=== PATIENT | female | born 2000 | race Caucasian/White ===

== ENCOUNTER 2021-06-23 00:57 | Observation (INO) | payer MEDICAID ==
[2021-06-23] MEDS ORDERED: IV RINGERS,LACTATED 1000ML 1,000 ML IV PRN (01:15)
[2021-06-23 01:44] LABS: BACTERIA,URINE 0 /HPF (0-FEW); RBC,URINE 0 /HPF (0-2)
[2021-06-23 01:45] LABS: AMORPHOUS SEDIMENT,UR PRESENT /HPF
[2021-06-23 02:24] LABS: AMNIO PT NEGATIVE
== END 2021-06-23 02:45 | disposition home or self-care (01) ==
LOC: 3 SO LND 00:57
PROVIDERS: ADMIT Obstetrics & Gynecology; ATTEND Obstetrics & Gynecology
DX: O42.913 Preterm premature rupture of membranes, unspecified as to length of time between rupture and onset of labor, third trimester (principal); Z3A.35 35 weeks gestation of pregnancy; Z79.899 Other long term (current) drug therapy
CPT/HCPCS: 36415; 59025; 81001; 84112; 87086; G0378; G0379

== ENCOUNTER 2021-07-24 20:24 | Observation (INO) | payer MEDICAID ==
[2021-07-24] MEDS ORDERED: hydrOXYzine 25 MG TABLET PO PRN (22:30)
[2021-07-24] MEDS ORDERED: IV RINGERS,LACTATED 1000ML 1,000 ML IV SCH (23:00)
[2021-07-24 23:18] LABS: BACTERIA,URINE FEW /HPF (0-FEW); RBC,URINE 0 /HPF (0-2)
[2021-07-24 23:19] LABS: AMORPHOUS SEDIMENT,UR PRESENT /HPF; BARBITURATES NEG (NEG); BENZODIAZEPINES NEG (NEG); CANNABINOIDS POS (NEG); COCAINE NEG (NEG); GRANULAR CASTS,URINE OCCASIONAL /HPF; METHADONE NEG (NEG); OPIATES NEG (NEG); PHENCYCLIDINE NEG (NEG)
[2021-07-24 23:27] LABS: AMPHETAMINE/METHAMPHETAMINE NEG (NEG)
== END 2021-07-24 23:15 | disposition home or self-care (01) ==
LOC: 3 SO LND 20:24
PROVIDERS: ADMIT Obstetrics & Gynecology; ATTEND Obstetrics & Gynecology
DX: O26.893 Other specified pregnancy related conditions, third trimester (principal); R10.2 Pelvic and perineal pain; M79.89 Other specified soft tissue disorders; Z3A.39 39 weeks gestation of pregnancy; Z79.899 Other long term (current) drug therapy
CPT/HCPCS: 59025; 80307; 81001; 87086; G0378; G0379